=== PATIENT | male | born 1995 | race Caucasian/White ===

== ENCOUNTER 2016-07-17 01:01 | Emergency (ER) | payer OTHER ==
[~2016-07-17] VITALS: Ht 170.2 cm; Wt 77.2 kg
[~2016-07-17 01:01] MED LIST: CHOL200010 PO; FBR PO; MULT-506 PO
[2016-07-17 01:09] VITALS: BP 120/68; TEMP 36.7; O2SAT 96; Ht 170.2 cm; Wt 77.2 kg
[2016-07-17 01:29] VITALS: PULSE 76
--- NOTE | 2016-07-17 01:59 | EMERGENCY ROOM VISIT NOTE ---
History Report prepared by Heladio: Bailey Medina Under the Supervision of: Dr. Amanda Villavicencio M.D. First contact with patient: 01:20 Chief Complaint: DETOX REQUEST Stated Complaint: DETOX REQUEST Nursing Triage Summary: Patient is requesting detox from xanax, vivance, adderall, marijuana, and cigarettes. Patient does not want to go to rehab, he wants to detox here. Patient was sent here by [facility]. History of Present Illness The patient is a 21 year old male who presents to the Emergency Room with complaints of worsening substance abuse starting [employer]. The patient states that he has been taking has been taking Xanax, vivance, Adderall, marijuana and smoking cigarettes. The patient states that he has epilepsy and has had 3 seizures after smoking synthetic marijuana a few weeks [employer]. The patient states that he does not currently take any seizure medications in few that it will causing him to have seizures. He states that he wants to stop taking drugs but that he also needs to pass all of his classes because he is a sponsored student on a [employer]. The patient states that he does no longer see a neurologist. He states that he has been seen at [facility] as well as [facility]. The patient denies suicidal ideation or homicidal ideation. The patient states that he cannot be seen at an alcohol rehabilitation center due to school and upcoming graduation. Source of History: patient Onset: [employer] Position: other (global) Timing: worsening Note: Associated symptoms; 3 seizures. Patient denies homicidal or suicidal ideation. Review of Systems See HPI for pertinent positives & negatives. A total of 10 systems reviewed and were otherwise negative. Past Medical & Surgical Medical Problems: (1) Epilepsy Family History Patient reports no known family medical history. Social History Smoking Status: Current Every Day Smoker Alcohol Use: occasionally Drug Use: none Marital Status: single Housing Status: lives with roommate Occupation Status: [employer] student Current/Historical Medications Scheduled Alprazolam (Alprazolam), 2 MG PO TID Amphetamine-Dextroamphetamine 20MG (Adderall 20MG), 40 MG PO DAILY Lisdexamfetamine Dimesylate (Vyvanse), 20 MG PO DAILY Pregabalin (Lyrica), 300 MG PO DAILY Allergies Coded Allergies: No Known Allergies (Verified , 07/17/16) Physical Exam Vital Signs Date Time Temp Pulse Resp B/P Pulse Ox O2 Delivery O2 Flow Rate FiO2 07/17/16 01:29 76 07/17/16 01:09 36.7 99 20 120/68 96 Room Air Physical Exam Vital signs reviewed. General: Well-appearing male, in no significant distress. HEENT: No scleral icterus, PERRLA, neck supple. Atraumatic. Cardiovascular: Regular rate and rhythm, no extra sounds. Pulmonary: Clear to auscultation bilaterally, normal work of breathing. Abdomen: Soft, nontender, nondistended, positive bowel sounds. Musculoskeletal: Atraumatic, no peripheral edema. Neurologic: Patient awake alert and oriented x 3, full strength in all 4 extremities. Cranial nerves 2 through 12 grossly intact. Skin: Warm, dry, no rash Psych: negative suicidal, negative homicidal. Medical Decision & Procedures ED Course 0120: Past medical records reviewed. The patient was evaluated in room B12. A complete history and physical examination was performed. 0220: After the caseworker intake spoke with the patient, I spoke with the caseworker intake and she states that the patient told her he was hearing voices. 0253: The patient is expressing his desire to leave and is willing to leave AMA. Medical Decision The patient is a 21 year old male who presents to the ED with complaints of substance abuse. Differentials include mood disorder, infection, hypoglycemia , electrolyte abnormalities, cardiac sources, intracerebral event, toxicologic, neurologic, as well as others were entertained. This pt was evaluated and appeared to be in no distress. Patient is asking for inpt detox from benzos and Adderal, that he is Rx by a local urgent care clinic. Pt also abuses other substances and has previous seizures, although I suspect it was under the influence. He is not compliant with Keppra. He was advised that we do not have an inpt detox program. Pt does not wish to go to inpt rehab. Case management evaluated the pt and he initially was willing to have inpt psychiatric eval, then he wanted to leave. Pt denied SI, HI. He signed out AMA as he was not intoxicated on my evaluation. He was advised to f/ u with [facility] as he is established. He will return to the ED for worsening of symptoms or any medical concerns. Impression Primary Impression: Polysubstance abuse Additional Impression: Seizure disorder Scribe Attestation The scribe's documentation has been prepared under my direction and personally reviewed by me in its entirety. I confirm that the note above accurately reflects all work, treatment, procedures, and medical decision making performed by me. Departure Information Dispostion Against Medical Advice Referrals Elisha Mcmahan (PCP) Forms HOME CARE DOCUMENTATION FORM, IMPORTANT VISIT INFORMATION, WORK / SCHOOL INSTRUCTIONS Patient Instructions My [facility] Additional Instructions Diagnosis: Polysubstance abuse, seizure disorder You have declined any laboratory work or psychiatric evaluation tonight. You have signed out AGAINST MEDICAL ADVICE. Please resume your Keppra as prescribed previously. Taper off of your Xanax. Stop your Adderall. Avoid alcohol. Follow-up with [facility] and [facility] tomorrow for further management of your drug detox. Return to the emergency department for worsening of symptoms or any medical concerns. Return to the emergency department for worsening of symptoms or any medical concerns. Problem Qualifiers
[2016-07-17] MEDS ORDERED: ALPR2TAB6 PO (02:36)
[2016-07-17] MEDS ORDERED: LISD20CA PO (02:37)
[2016-07-17] MEDS ORDERED: PREG300C PO (02:37)
[2016-07-17] MEDS ORDERED: AMPH20TA2 PO (02:37)
== END 2016-07-17 02:57 | disposition left against medical advice (07) ==
LOC: C.EDB 01:02
DX: F19.10 Other psychoactive substance abuse, uncomplicated (principal); G40.909 Epilepsy, unspecified, not intractable, without status epilepticus; F17.200 Nicotine dependence, unspecified, uncomplicated